=== PATIENT | male | born 1935 | race Caucasian/White ===

== ENCOUNTER 2019-08-12 07:05 | Emergency (ER) | payer BC, MEDICARE ==
[2019-08-12] MEDS ORDERED: predniSONE 20 MG Tab PO STA (08:38)
--- NOTE | 2019-08-12 08:41 | EDM.PDOC ---
ED HPI GENERAL MEDICAL PROBLEM - General Chief Complaint: Lower Extremity Injury/Pain Stated Complaint: LEG PAIN Time Seen by Provider: 08/12/19 07:10 Source of Information: Reports: Patient History Limitations: Reports: No Limitations - History of Present Illness INITIAL COMMENTS - FREE TEXT/NARRATIVE: usually walks 10 blocks a day did same yesterday , slept and woke up this am not able to bear weight on the right knee poorly localized pain in the knee no swelling noted shoots down the leg as he tries to ambulate Onset: Today Onset Date: 08/12/19 Duration: Getting Worse Location: Reports: Lower Extremity, Right Quality: Reports: Ache, Dull Severity: Moderate Improves with: Reports: None, Immobilization Worsens with: Reports: Movement Context: Reports: Activity Associated Symptoms: Reports: No Other Symptoms righd knee Pain Score (Numeric/FACES): 10 - Related Data Allergies Allergy/AdvReac Type Severity Reaction Status Date / Time No Known Allergies Allergy Verified 08/12/19 07:21 Home Meds: Home Meds Aspirin [Halfprin] 81 mg PO DAILY 08/12/19 [History] Cyanocobalamin (Vitamin B-12) [Vitamin B-12] 1,000 mcg PO DAILY 08/12/19 [ History] Finasteride [Proscar] 5 mg PO DAILY 08/12/19 [History] Metoprolol Tartrate 12.5 mg PO BID 08/12/19 [History] Naproxen 500 mg PO BID #20 tablet 08/12/19 [Rx] Pravastatin Sodium [Pravachol] 40 mg PO DAILY 08/12/19 [History] Terazosin HCl [Terazosin] 5 mg PO DAILY 08/12/19 [History] allopurinoL [Zyloprim] 300 mg PO DAILY 08/12/19 [History] hydroCHLOROthiazide [Hydrochlorothiazide] 25 mg PO DAILY 08/12/19 [History] Past Medical History Cardiovascular History: Reports: High Cholesterol, Hypertension Genitourinary History: Reports: Other (See Below) Other Genitourinary History: urinary retention Musculoskeletal History: Reports: Gout Social & Family History - Tobacco Use Smoking Status *Q: Never Smoker Review of Systems - Review of Systems Review Of Systems: See Below Constitutional: Reports: No Symptoms Eyes: Reports: No Symptoms Ears: Reports: No Symptoms Nose: Reports: No Symptoms Mouth/Throat: Reports: No Symptoms Respiratory: Reports: No Symptoms Cardiovascular: Reports: No Symptoms GI/Abdominal: Reports: No Symptoms Genitourinary: Reports: No Symptoms Musculoskeletal: Reports: Joint Pain, Muscle Stiffness. Denies: Joint Swelling Skin: Reports: No Symptoms Neurological: Reports: No Symptoms ED EXAM, GENERAL - Physical Exam Exam: See Below Exam Limited By: No Limitations General Appearance: Alert, WD/WN Eye Exam: Bilateral Eye: EOMI Ears: Normal External Exam Nose: Normal Inspection Throat/Mouth: Normal Oropharynx Respiratory/Chest: No Respiratory Distress Back Exam: Normal Inspection Extremities: Leg Pain, Limited Range of Motion (right knee). No: Joint Swelling , Increased Warmth Neurological: Alert, Oriented, CN II-XII Intact Lymphatic: No Adenopathy Course - Vital Signs Last Recorded V/S: Last Vital Signs Temp 36.5 C 08/12/19 07:05 Pulse 80 08/12/19 07:05 Resp 18 08/12/19 07:05 BP 123/93 H 08/12/19 07:05 Pulse Ox 97 08/12/19 07:05 - Orders/Labs/Meds Orders: Active Orders 24 hr Category Date Time Status Knee Min 4V Rt [CR] Stat Exams 08/12/19 07:28 Ordered Departure - Departure Time of Disposition: 09:00 Disposition: Home, Self-Care 01 Condition: Fair Clinical Impression: Pain of right knee after injury, Sprain of knee - Discharge Information *PRESCRIPTION DRUG MONITORING PROGRAM REVIEWED*: Not Applicable *COPY OF PRESCRIPTION DRUG MONITORING REPORT IN PATIENT KIANNA: Not Applicable Instructions: Knee Sprain, Adult, [id number], Acute Knee Pain, Adult, Easy-to -Read, How to Use a Knee Brace Referrals: PCP,None [Primary Care Provider] - Additional Instructions: 1) Warm compress to the knee 3 times daily for about 20 mins 2) Flexion / extension exercises to the knee when brace is off 3) Ok to use brace through the night 4) continue with all other medications 5) Make appointment to see you PCP if pain persists after one week, you may need to get MRI done Sepsis Event Note - Evaluation Sepsis Screening Result: No Definite Risk - Focused Exam Vital Signs: Vital Signs Temp Pulse Resp BP Pulse Ox 08/12/19 07:05 36.5 C 80 18 123/93 H 97 Date Exam was Performed: 05/24/20 Time Exam was Performed: 08:35 - My Orders Last 24 Hours: My Active Orders 08/12/19 07:28 Knee Min 4V Rt [CR] Stat - Assessment/Plan Last 24 Hours: My Active Orders 08/12/19 07:28 Knee Min 4V Rt [CR] Stat
[2019-08-12] MEDS ORDERED: Ketorolac 30 MG/ML SDV IM ONE (08:44)
--- NOTE | 2019-08-14 10:06 | CR ---
INDICATION: Pain. RIGHT KNEE: Three views of the right knee were obtained and revealed mild hypertrophic degenerative changes at the intercondylar spines. Femoral tibial joint spaces appear to be well maintained. There appears to be narrowing of the patellofemoral joint space, especially laterally, with moderate hypertrophic changes there. Bone density appeared to be grossly normal. A definite acute fracture or dislocation was not seen. There is a somewhat heterogeneous appearance of the soft tissue posteriorly of questionable significance. It could be related to soft tissue injury or even infection and should be correlated clinically. Report was called to Dr. Aviles at 09:53 hours. RICKY
== END 2019-08-12 08:58 | disposition home or self-care (01) ==
LOC: FB.ED 07:05
DX: S83.91XA Sprain of unspecified site of right knee, initial encounter (principal); E78.00 Pure hypercholesterolemia, unspecified; I10 Essential (primary) hypertension; Z79.82 Long term (current) use of aspirin; Z79.899 Other long term (current) drug therapy; X58.XXXA Exposure to other specified factors, initial encounter
CPT/HCPCS: 73562; 96372; 99283; J1885; J7512

== ENCOUNTER 2019-09-01 19:07 | Emergency (ER) | payer MEDICARE ==
--- NOTE | 2019-09-01 19:27 | EDM.PDOC ---
ED HPI GENERAL MEDICAL PROBLEM - General Chief Complaint: Lower Extremity Injury/Pain Stated Complaint: knee pain Time Seen by Provider: 09/01/19 19:25 Source of Information: Reports: Patient History Limitations: Reports: No Limitations - History of Present Illness INITIAL COMMENTS - FREE TEXT/NARRATIVE: 83-year-old male who reports intermittent right knee pain since 08/12/2019. He was seen in the emergency department at that time by Dr. Presley and had x-ray performed that was normal. He had developed the knee pain rather acutely he had no trauma that precipitated the pain. The pain was more of a general pain around the entire knee. He reports that a few days following this the pain seemed to go away and he had no more severe pain in the until yesterday. He reports that he saw Kristina Benedict a few days after he had been seen in the emergency department and he was pain-free at that time and the decision was made to wait for any further imaging. She apparently did give him a steroid injection in his knee as he really had no more problems yesterday. He did have his toenails trimmed yesterday at the walk-in clinic and he saw Alyce Seay and they discussed doing an MRI of his right knee at that time but decided to wait. He states that when he got home from that appointment he begin to have pain in his right knee like the pain that he had before and it seems to have gotten worse with time. He reports that when he is rest or dissed lying there the pain is basically a 0/10 but when he gets up and tries to move around the pain goes up to a 9 to 10/10. He finds it difficult to walk. And he feels that when he bears weight that is when he starts to have pain generally around his right knee. There is been no swelling. There has been no redness. He has had no fever. He has no other joint pains. He has had no trauma in the knee. There are no other associated signs or symptoms. There are no other modifying factors. Onset: Other (Off-and-on for the past 3-4 weeks but worse yesterday afternoon) Duration: Getting Worse Location: Reports: Lower Extremity, Right (Right knee) Quality: Reports: Ache, Sharp, Throbbing Severity: Moderate (to severe) Improves with: Reports: Rest Worsens with: Reports: Other (Ambulation.Bearing weight on his right leg) Context: Reports: Other (As above) Associated Symptoms: Reports: No Other Symptoms Treatments A[employer] F[employer]ER: Reports: Other (see below) (Nothing) - Related Data Allergies Allergy/AdvReac Type Severity Reaction Status Date / Time No Known Allergies Allergy Verified 08/12/19 07:21 Home Meds: Home Meds Aspirin [Halfprin] 81 mg PO DAILY 08/12/19 [History] Cyanocobalamin (Vitamin B-12) [Vitamin B-12] 1,000 mcg PO DAILY 08/12/19 [ History] Finasteride [Proscar] 5 mg PO DAILY 08/12/19 [History] Metoprolol Tartrate 12.5 mg PO BID 08/12/19 [History] Naproxen 500 mg PO BID #20 tablet 08/12/19 [Rx] Pravastatin Sodium [Pravachol] 40 mg PO DAILY 08/12/19 [History] Terazosin HCl [Terazosin] 5 mg PO DAILY 08/12/19 [History] allopurinoL [Zyloprim] 300 mg PO DAILY 08/12/19 [History] hydroCHLOROthiazide [Hydrochlorothiazide] 25 mg PO DAILY 08/12/19 [History] Walker [Ultra-Light Rollator] 1 each MC ASDIRECTED #1 each 09/01/19 [Rx] traMADol [Ultram] 50 mg PO Q6H PRN #20 tab 09/01/19 [Rx] Past Medical History Cardiovascular History: Reports: High Cholesterol, Hypertension, Other (See Below) (Peripheral vascular disease) Genitourinary History: Reports: BPH, Other (See Below) Other Genitourinary History: urinary retention Musculoskeletal History: Reports: Gout - Past Surgical History Cardiovascular Surgical History: Reports: Percutaneous Transluminal Angioplasty (With stents in both groin areas) GI Surgical History: Reports: Appendectomy, Hernia, Abdominal (2 with the last one being with mesh.) Social & Family History - Tobacco Use Smoking Status *Q: Unknown Ever Smoked (Nonsmoker) - Alcohol Use Alcohol Use History: Yes Alcohol Use Frequency: Socially - Living Situation & Occupation Occupation: Retired Social History Comment: Moved from [facility] approximately 2 months ago. Review of Systems - Review of Systems Review Of Systems: See Below Constitutional: Reports: No Symptoms Eyes: Reports: No Symptoms Ears: Reports: No Symptoms Nose: Reports: No Symptoms Mouth/Throat: Reports: No Symptoms Respiratory: Reports: No Symptoms Cardiovascular: Reports: No Symptoms GI/Abdominal: Reports: No Symptoms Genitourinary: Reports: No Symptoms Musculoskeletal: Reports: Leg Pain (Right knee pain), Joint Pain. Denies: Joint Swelling Skin: Reports: No Symptoms Neurological: Reports: No Symptoms ED EXAM, GENERAL - Physical Exam Exam: See Below Exam Limited By: No Limitations General Appearance: Alert, WD/WN, Mild Distress, Other (Nontoxic appearing) Eye Exam: Bilateral Eye: EOMI, Normal Inspection Ears: Normal External Exam, Hearing Grossly Normal Ear Exam: Bilateral Ear: Auricle Normal Nose: Normal Inspection, Normal Mucosa, No Blood Throat/Mouth: Normal Inspection, Normal Oropharynx, Normal Voice, No Airway Compromise Head: Atraumatic, Normocephalic Neck: Normal Inspection, Supple, Non-Tender, Full Range of Motion Respiratory/Chest: No Respiratory Distress, Lungs Clear, Normal Breath Sounds, No Accessory Muscle Use, Chest Non-Tender Cardiovascular: Normal Peripheral Pulses, Regular Rate, Rhythm, No JVD, No Murmur Peripheral Pulses: 2+: Radial (L), Radial (R) GI/Abdominal: Normal Bowel Sounds, Soft, Non-Tender, No Mass Back Exam: Normal Inspection Extremities: Normal Inspection, Normal Range of Motion, Non-Tender, No Pedal Edema, Normal Capillary Refill, Other (No pain with palpation around the right knee and there is no effusion. No ligamentous laxity.). No: Joint Swelling, Increased Warmth Neurological: Alert, Oriented, CN II-XII Intact, Normal Cognition, No Motor/ Sensory Deficits Psychiatric: Normal Affect Skin Exam: Warm, Dry, Intact, Normal Color, No Rash Course - Vital Signs Last Recorded V/S: Last Vital Signs Temp 36.9 C 09/01/19 21:53 Pulse 80 09/01/19 21:53 Resp 16 09/01/19 21:53 BP 130/84 09/01/19 21:53 Pulse Ox 99 09/01/19 21:53 - Orders/Labs/Meds Orders: Active Orders 24 hr Category Date Time Status Lower Extremity wo Cont Rt [CT] Stat Exams 09/01/19 19:53 Taken Labs: Laboratory Tests 09/01/19 09/01/19 Range/Units 20:08 20:08 WBC 7.3 (4.5-12.0) X10-3/uL RBC 4.87 (4.30-5.75) x10(6)uL Hgb 14.6 (13.5-17.8) g/dL Hct 43.9 (30.0-51.3) % MCV 90.1 (80-96) fL MCH 30.0 (27.7-33.6) pg MCHC 33.2 (32.2-35.4) g/dL RDW 15.3 (11.5-15.5) % Plt Count 103 L (125-369) X10(3)uL MPV 10.5 H (7.4-10.4) fL Neut % (Auto) 66.0 (46-82) % Lymph % (Auto) 11.3 L (13-37) % [place] % (Auto) 15.4 H (4-12) % Eos % (Auto) 7 H (1.0-5.0) % Baso % (Auto) 1 (0-2) % Neut # (Auto) 4.8 (1.6-8.3) # Lymph # (Auto) 0.8 (0.6-5.0) # [place] # (Auto) 1.1 (0.0-1.3) # Eos # (Auto) 0.5 (0.0-0.8) # Baso # (Auto) 0.1 (0.0-0.2) # C-Reactive Protein 2.3 H (0.5-0.9) mg/dL Meds: Medications Discontinued Medications Generic Name Dose Route Start Last Admin Trade Name Freq PRN Reason Stop Dose Admin Tramadol HCl 50 mg 09/01/19 20:40 09/01/19 20:45 Ultram PO 09/01/19 20:41 50 mg ONETIME ONE Administration - Radiology Interpretation Free Text/Narrative:: CT scan of right knee showed no fracture, subluxation, effusion or soft tissue swelling. There were vascular calcifications noted. This is all per the radiologist. - Re-Assessments/Exams Free Text/Narrative Re-Assessment/Exam: 09/01/19 21:15: The patient's blood tests were reassuring. His CRP was mildly elevated but his white blood cell count was normal. CT scan of his right knee showed no fracture and no effusion. The pain in his right knee appears to be due to degenerative joint disease. The patient was given tramadol 50 mg by mouth and I will give him a prescription in for the same to be used as needed for the pain. I will also give the patient a prescription for a 4 wheeled walker. He will need to follow-up with Alyce Seay or with the [facility] this next week. Departure - Departure Time of Disposition: 21:25 Disposition: Home, Self-Care 01 Condition: Good (Stable) Clinical Impression: Right knee pain Qualifiers: Chronicity: acute Qualified Code(s): M25.561 - Pain in right knee Right knee DJD Qualifiers: Osteoarthritis type: unspecified Qualified Code(s): M17.11 - Unilateral primary osteoarthritis, right knee - Discharge Information Prescriptions: traMADol [Ultram] 50 mg PO Q6H PRN #20 tab PRN Reason: Moderate to severe pain Walker [Ultra-Light Rollator] 1 each MC ASDIRECTED #1 each Instructions: Acute Knee Pain, Adult, How To Use a Four-Wheeled Walker, Joint Pain, [id number] Referrals: Alyce Seay, CONTINUOUS IMPROVEMENT SPECIALIST [Physician] - Forms: ED Department Discharge Additional Instructions: Your blood tests were reassuring. There was no evidence of infection. The CT scan of your right knee showed no evidence of fracture or inflammation. The pain in your right knee appears to be from degenerative joint disease. You may use ibuprofen as needed for pain. Medication as prescribed for more severe pain (tramadol). You may also take Tylenol 1000 mg by mouth every 6 hours as needed for pain. Follow-up with either Alyce Seay or the [facility] week. Back to the emergency department for redness, increased swelling, increased warmth, fever, shortness of breath, chest pain or any other concerning sign or symptom. Sepsis Event Note (ED) - Focused Exam Vital Signs: Vital Signs Temp Temp Pulse Resp BP Pulse Ox 09/01/19 21:53 36.9 C 80 16 130/84 99 09/01/19 19:07 35.9 C L 69 18 161/87 H 98 - My Orders Last 24 Hours: My Active Orders 09/01/19 19:53 Lower Extremity wo Cont Rt [CT] Stat - Assessment/Plan Last 24 Hours: My Active Orders 09/01/19 19:53 Lower Extremity wo Cont Rt [CT] Stat
[2019-09-01] MEDS: traMADol 50 MG Tab PO ONE (20:45)
== END 2019-09-01 21:53 | disposition home or self-care (01) ==
LOC: FB.ED 19:07
DX: M17.11 Unilateral primary osteoarthritis, right knee (principal); I10 Essential (primary) hypertension; E78.00 Pure hypercholesterolemia, unspecified; Z79.82 Long term (current) use of aspirin; Z79.899 Other long term (current) drug therapy
CPT/HCPCS: 36415; 73700-RT; 85025; 86140; 99283; 99284-25; A9270-GY

== ENCOUNTER 2020-03-04 18:19 | Emergency (ER) | payer MEDICARE ==
[2020-03-04] MEDS ORDERED: Sodium Chloride 0.9% 10 ML Syringe FLUSH PRN (18:30)
[2020-03-04] MEDS ORDERED: Potassium Chloride 20 MEQ Tab.ER PO ONE (18:31)
[2020-03-04] MEDS ORDERED: Sodium Chloride 0.9% 1,000 ML IV SCH (18:45)
--- NOTE | 2020-03-04 20:05 | EDM.PDOC ---
ED HPI GENERAL MEDICAL PROBLEM - General Chief Complaint: Gastrointestinal Problem Stated Complaint: weakness Time Seen by Provider: 03/04/20 18:25 Source of Information: Reports: Patient History Limitations: Reports: No Limitations - History of Present Illness INITIAL COMMENTS - FREE TEXT/NARRATIVE: Patient presented to the ED with his son because of weakness for the past 3 da ys. There is no fever,chills, cough or cold. There is no N/V/D. He was seen in the clinic today and chm panel did show a potasium of 2.8 and mildly elevated BUN and Creatinine. - Related Data Allergies Allergy/AdvReac Type Severity Reaction Status Date / Time No Known Allergies Allergy Verified 03/04/20 19:34 Home Meds: Home Meds Allopurinol [Zyloprim] 100 mg PO DAILY 03/04/20 [History] Aspirin [Ecotrin EC] 81 mg PO DAILY 03/04/20 [History] Cyanocobalamin (Vitamin B12) [Vitamin B12] 1,000 mcg PO DAILY 03/04/20 [History] Finasteride 5 mg PO DAILY 03/04/20 [History] Metoprolol Succinate 50 mg PO DAILY 03/04/20 [History] Potassium Chloride [Klor-Con M20] 40 meq PO TID #12 tab.er 03/04/20 [Rx] Pravastatin Sodium [Pravachol] 40 mg PO DAILY 03/04/20 [History] Terazosin HCl [Terazosin] 5 mg PO DAILY 03/04/20 [History] Vit A/Vit C/Vit E/Zinc/Copper [Preservision] 1 tab PO DAILY 03/04/20 [History] hydroCHLOROthiazide [Hydrochlorothiazide] 25 mg PO DAILY 03/04/20 [History] Past Medical History Cardiovascular History: Reports: High Cholesterol, Hypertension, Other (See Belo w) Genitourinary History: Reports: BPH, Other (See Below) Other Genitourinary History: urinary retention Musculoskeletal History: Reports: Gout - Past Surgical History Cardiovascular Surgical History: Reports: Percutaneous Transluminal Angioplasty GI Surgical History: Reports: Appendectomy, Hernia, Abdominal Social & Family History - Family History Family Medical History: No Pertinent Family History - Tobacco Use Tobacco Use Status *Q: Never Tobacco User Second Hand Smoke Exposure: No - Caffeine Use Caffeine Use: Reports: Soda - Recreational Drug Use Recreational Drug Use: No - Living Situation & Occupation Occupation: Retired ED ROS GENERAL - Review of Systems Review Of Systems: See Below Constitutional: Reports: No Symptoms HEENT: Reports: No Symptoms Respiratory: Reports: No Symptoms Cardiovascular: Reports: No Symptoms Endocrine: Reports: No Symptoms GI/Abdominal: Reports: No Symptoms : Reports: No Symptoms Musculoskeletal: Reports: No Symptoms Skin: Reports: No Symptoms Neurological: Reports: No Symptoms Psychiatric: Reports: No Symptoms Hematologic/Lymphatic: Reports: No Symptoms ED EXAM, GENERAL - Physical Exam Exam: See Below Exam Limited By: No Limitations General Appearance: Alert, No Apparent Distress Eye Exam: Bilateral Eye: PERRL Ears: Normal External Exam, Normal Canal Nose: Normal Inspection, Normal Mucosa Throat/Mouth: Normal Inspection, Normal Lips Head: Atraumatic, Normocephalic Neck: Normal Inspection, Supple, Non-Tender, Full Range of Motion Respiratory/Chest: No Respiratory Distress, Lungs Clear, Normal Breath Sounds Cardiovascular: Normal Peripheral Pulses, Regular Rate, Rhythm, No Edema, No Gallop GI/Abdominal: Normal Bowel Sounds, Soft, Non-Tender, No Organomegaly Back Exam: Normal Inspection, Full Range of Motion Course - Vital Signs Text/Narrative:: Labs/EKG/CXR was discussed with patient and his son NS 1 L bolus Klor Con 40 meq po x1 Last Recorded V/S: Last Vital Signs Temp 37.1 C 03/04/20 18:20 Pulse 95 03/04/20 18:20 Resp 21 H 03/04/20 18:20 BP 145/83 H 03/04/20 18:20 Pulse Ox 95 03/04/20 18:20 - Orders/Labs/Meds Orders: Active Orders 24 hr Category Date Time Status Saline Lock Insert [OM.PC] Routine Oth 03/04/20 18:30 Ordered EKG 12 Lead [EK] Routine Ther 03/04/20 18:30 Ordered Labs: Laboratory Tests 03/04/20 Range/Units 18:40 Troponin I 59.3 (4.0-60.3) pg/mL Meds: Medications Discontinued Medications Generic Name Dose Route Start Last Admin Trade Name Freq PRN Reason Stop Dose Admin Sodium Chloride 1,000 mls @ 500 mls/hr 03/04/20 18:45 03/04/20 18:36 Normal Saline IV 500 mls/hr ASDIRECTED SERA Administration Potassium Chloride 40 meq 03/04/20 18:31 12/15/20 18:40 Klor-Con M20 PO 03/04/20 18:32 40 meq ONETIME ONE Administration Sodium Chloride 10 ml 03/04/20 18:30 03/04/20 18:27 Saline Flush FLUSH 10 ml ASDIRECTED PRN Administration Keep Vein Open Departure - Departure Time of Disposition: 18:00 Disposition: Home, Self-Care 01 Condition: Good Clinical Impression: Dehydration, Hypokalemia, Weakness - Discharge Information Prescriptions: Potassium Chloride [Klor-Con M20] 40 meq PO TID #12 tab.er Instructions: Hypokalemia, Dehydration, Adult, [id number] Referrals: PCP,None [Primary Care Provider] - Forms: ED Department Discharge Additional Instructions: Please read discharge instructions instructions on dehydration, hypokalemia(low potassium) Do not take your HCTZ/hydrochlorothiazide for 3 days Klor con 20 meq, take 2 tablets 3 times daily for 3 days Follow up with your primary care provider as needed. Sepsis Event Note (ED) - Focused Exam Vital Signs: Vital Signs Temp Pulse Resp BP Pulse Ox 03/04/20 18:20 37.1 C 95 21 H 145/83 H 95 - My Orders Last 24 Hours: My Active Orders 03/04/20 18:30 Saline Lock Insert [OM.PC] Routine EKG 12 Lead [EK] Routine - Assessment/Plan Last 24 Hours: My Active Orders 03/04/20 18:30 Saline Lock Insert [OM.PC] Routine EKG 12 Lead [EK] Routine
--- NOTE | 2020-03-04 20:27 | CR ---
CHEST ONE VIEW Portable AP upright view of the chest was obtained 03/04/2020 and revealed suggestion of increased markings bilaterally which may represent patchy infiltration, mostly peripherally. Process such as Covid 19 pneumonia could be present but should be correlated clinically as findings may simply be on the basis of fibrosis. There is pleural thickening bilaterally, laterally. The heart did not appear grossly enlarged but was prominent. The aorta is tortuous with calcification in the arch. Overlying EKG leads are noted. IMPRESSION: No definite acute process, but difficult to exclude areas of patchy bronchopneumonia with somewhat heavy markings peripherally. When clinically possible, full inspiration PA and lateral views of the chest may be helpful. MTDD
== END 2020-03-04 21:10 | disposition home or self-care (01) ==
LOC: FB.ED 18:19
DX: E87.6 Hypokalemia (principal); E86.0 Dehydration; I10 Essential (primary) hypertension; E78.00 Pure hypercholesterolemia, unspecified; M10.9 Gout, unspecified; N40.0 Benign prostatic hyperplasia without lower urinary tract symptoms; Z79.82 Long term (current) use of aspirin; Z79.899 Other long term (current) drug therapy
CPT/HCPCS: 36415; 71045; 84484; 93005; 99285-25; A9270-GY; J7030

== ENCOUNTER 2020-03-09 19:02 | Emergency (ER) | payer MEDICARE ==
[2020-03-09] MEDS ORDERED: Acetaminophen 650 MG Supp RECTAL ONE (19:21)
[2020-03-09] MEDS ORDERED: Sodium Chloride 0.9% 1,000 ML IV SCH ×2 (19:30→21:00)
--- NOTE | 2020-03-09 20:02 | EDM.PDOC ---
ED HPI GENERAL MEDICAL PROBLEM - General Stated Complaint: CONFUSED,FEVER Time Seen by Provider: 03/09/20 19:10 Source of Information: Reports: Family History Limitations: Reports: No Limitations - History of Present Illness INITIAL COMMENTS - FREE TEXT/NARRATIVE: c/o weak and fever pt in ED 5d ago with c/o weak, CxR shows possible pneumonia, COVID done and is still pending, trop neg, d/c'ed home after IVF pt quite weak today, not able to get out of bed, son helped him to a chair but could not get him in a car, EMS transported here, temp 105 at home, 102 here hydration seems fair, no distress here - Related Data Allergies Allergy/AdvReac Type Severity Reaction Status Date / Time No Known Allergies Allergy Verified 03/04/20 19:34 Home Meds: Home Meds Allopurinol [Zyloprim] 100 mg PO DAILY 03/04/20 [History] Aspirin [Ecotrin EC] 81 mg PO DAILY 03/04/20 [History] Cyanocobalamin (Vitamin B12) [Vitamin B12] 1,000 mcg PO DAILY 03/04/20 [History] Finasteride 5 mg PO DAILY 03/04/20 [History] Metoprolol Succinate 50 mg PO DAILY 03/04/20 [History] Potassium Chloride [Klor-Con M20] 40 meq PO TID #12 tab.er 03/04/20 [Rx] Pravastatin Sodium [Pravachol] 40 mg PO DAILY 03/04/20 [History] Terazosin HCl [Terazosin] 5 mg PO DAILY 03/04/20 [History] Vit A/Vit C/Vit E/Zinc/Copper [Preservision] 1 tab PO DAILY 03/04/20 [History] hydroCHLOROthiazide [Hydrochlorothiazide] 25 mg PO DAILY 03/04/20 [History] Past Medical History Cardiovascular History: Reports: High Cholesterol, Hypertension, Other (See Below) Genitourinary History: Reports: BPH, Other (See Below) Other Genitourinary History: urinary retention Musculoskeletal History: Reports: Gout - Past Surgical History Cardiovascular Surgical History: Reports: Percutaneous Transluminal Angioplasty GI Surgical History: Reports: Appendectomy, Hernia, Abdominal Social & Family History - Family History Family Medical History: No Pertinent Family History - Caffeine Use Caffeine Use: Reports: Soda - Living Situation & Occupation Occupation: Retired ED ROS GENERAL - Review of Systems Review Of Systems: See Below Constitutional: Reports: Fever, Weakness, Fatigue, Decreased Appetite HEENT: Reports: No Symptoms Respiratory: Reports: Shortness of Breath Cardiovascular: Denies: Chest Pain Endocrine: Reports: No Symptoms GI/Abdominal: Reports: No Symptoms : Reports: No Symptoms Musculoskeletal: Reports: No Symptoms Skin: Reports: No Symptoms Neurological: Reports: No Symptoms Psychiatric: Reports: No Symptoms Hematologic/Lymphatic: Reports: No Symptoms Immunologic: Reports: No Symptoms ED EXAM, GENERAL - Physical Exam Exam: See Below General Appearance: Alert, WD/WN, Other (resting quietly on his back, not answering questions, mildly ill, did talk to EMS and son, tired) Nose: Normal Inspection Head: Atraumatic, Normocephalic Neck: Normal Inspection, Supple, Non-Tender, Full Range of Motion. No: Lymphadenopathy (R), Lymphadenopathy (L) Respiratory/Chest: Other (fair AE, no inc'd exp phase, no definite rales/wheezes, symmetric, no retractions, no purse lips, no accessory muscles) Cardiovascular: Regular Rate, Rhythm, No Edema, No JVD, No Murmur GI/Abdominal: Normal Bowel Sounds, Soft, Non-Tender, No Distention Back Exam: Normal Inspection, Full Range of Motion. No: CVA Tenderness (R), CVA Tenderness (L) Extremities: Normal Inspection, Non-Tender, No Pedal Edema, Other (slight dec'd turgor UEs only, no tenting) Skin Exam: Warm, Dry, Intact, Normal Color, No Rash Lymphatic: No Adenopathy Course - Orders/Labs/Meds Orders: Active Orders 24 hr Category Date Time Status EKG Documentation Completion [RC] ASDIRECTED Care 03/09/20 19:20 Active Sawant Catheter Insertion [Insert Urinary Catheter] [OM. Care 03/09/20 20:30 Ordered PC] Q24H Oxygen Therapy [RC] ASDIRECTED Care 03/09/20 19:20 Active Urinary Catheter Assessment [RC] QSHIFT Care 03/09/20 20:29 Active Chest 1V Frontal [CR] Stat Exams 03/09/20 19:19 Taken CULTURE BLOOD [BC] Urgent Lab 03/09/20 19:40 Received CULTURE BLOOD [BC] Urgent Lab 03/09/20 19:45 Received UA W/MICROSCOPIC [URIN] Stat Lab 03/09/20 19:18 Ordered Magnesium Sulfate [Magnesium Sulfate 50%] 2 gm Med 03/09/20 20:26 Active Dextrose 5% in Water 100 ml IV ONETIME Potassium Chloride [KCL 20 MEQ in Water 100 ML] 20 meq Med 03/09/20 20:27 Active Premix Bag 1 bag IV ONETIME Sodium Chloride 0.9% [Normal Saline] 1,000 ml Med 03/09/20 19:30 Active IV ASDIRECTED Sodium Chloride 0.9% [Normal Saline] 1,000 ml Med 03/09/20 21:00 Ordered IV ASDIRECTED Vancomycin 1.25 gm Med 03/09/20 20:54 Ordered Sodium Chloride 0.9% [Normal Saline] 250 ml IV ONETIME cefTRIAXone [Rocephin] Med 03/09/20 21:00 Active 1 gm IVPUSH Q24H Blood Culture x2 Reflex Set [OM.PC] Urgent Oth 03/09/20 19:18 Ordered EKG 12 Lead [EK] Routine Ther 03/09/20 19:20 Ordered Medication Orders Ceftriaxone Sodium (Rocephin) 1 gm IVPUSH Q24H [facility] Sodium Chloride (Normal Saline) 1,000 mls @ 999 mls/hr IV ASDIRECTED [facility] Last Admin: 03/09/20 19:50 Dose: 999 mls/hr Documented by: DENISE Magnesium Sulfate 2 gm/ (Dextrose/Water) 104 mls @ 100 mls/hr IV ONETIME ONE Stop: 03/09/20 21:28 Potassium Chloride 20 meq/ (Premix) 100 mls @ 50 mls/hr IV ONETIME ONE Stop: 03/09/20 22:26 Vancomycin HCl 1.25 gm/ Sodium (Chloride) 250 mls @ 167 mls/hr IV ONETIME ONE Stop: 03/09/20 22:23 Sodium Chloride (Normal Saline) 1,000 mls @ 999 mls/hr IV ASDIRECTED [facility] Labs: Laboratory Tests 03/09/20 03/09/20 03/09/20 Range/Units 19:40 19:40 19:40 WBC 8.9 (3.2-10.1) x10-3/uL RBC 4.88 (3.90-5.90) x10(6)uL Hgb 14.2 (12.9-17.7) g/dL Hct 42.3 (38.3-50.1) % MCV 86.7 (80.8-98.7) fL MCH 29.1 (27.0-33.3) pg MCHC 33.5 (28.7-35.3) g/dL RDW 15.6 H (12.4-15.0) % Plt Count 127 (117-477) x10(3)uL MPV 10.6 (6.7-11.0) fL Neut % (Auto) 88.4 H (40.3-71.8) % Lymph % (Auto) 2.1 L (15.8-45.3) % [place] % (Auto) 9.4 (5.5-15.2) % Eos % (Auto) 0.0 L (0.1-6.8) % Baso % (Auto) 0.1 L (0.3-3.8) % Neut # (Auto) 7.8 H (1.7-6.9) x10-3/uL Lymph # (Auto) 0.2 L (0.5-4.5) x10-3/uL [place] # (Auto) 0.8 (0.0-1.2) x10-3/uL Eos # (Auto) 0.0 (0.0-0.6) x10-3/uL Baso # (Auto) 0.0 (0.0-0.3) x10-3/uL D-Dimer, Quantitative > 4.40 H (0.0-0.59) mg/LFEU Sodium 140 (135-145) mmol/L Potassium 2.9 L (3.5-5.3) mmol/L Chloride 99 L (100-110) mmol/L Carbon Dioxide 27 (21-32) mmol/L BUN 27 H (7-18) mg/dL Creatinine 1.5 H (0.70-1.30) mg/dL Est Cr Clr Drug Dosing TNP Estimated GFR (MDRD) 44 L (>60) BUN/Creatinine Ratio 18.0 (9-20) Glucose 111 (80-116) mg/dL Lactic Acid (0.4-2.0) mmol/L Calcium 8.7 (8.6-10.2) mg/dL Magnesium (1.8-2.5) mg/dL Total Bilirubin 1.3 (0.1-1.3) mg/dL AST 54 H (5-25) IU/L ALT 32 (12-36) U/L Alkaline Phosphatase 63 (56-112) IU/L Troponin I (4.0-60.3) pg/mL C-Reactive Protein (0.5-0.9) mg/dL Total Protein 6.7 (6.0-8.0) g/dL Albumin 2.7 L (3.2-4.6) g/dL Globulin 4.0 g/dL Albumin/Globulin Ratio 0.7 SARS-CoV-2 RNA (PERRY) (NEGATIVE) 03/09/20 03/09/20 03/09/20 Range/Units 19:40 19:40 19:40 WBC (3.2-10.1) x10-3/uL RBC (3.90-5.90) x10(6)uL Hgb (12.9-17.7) g/dL Hct (38.3-50.1) % MCV (80.8-98.7) fL MCH (27.0-33.3) pg MCHC (28.7-35.3) g/dL RDW (12.4-15.0) % Plt Count (117-477) x10(3)uL MPV (6.7-11.0) fL Neut % (Auto) (40.3-71.8) % Lymph % (Auto) (15.8-45.3) % [place] % (Auto) (5.5-15.2) % Eos % (Auto) (0.1-6.8) % Baso % (Auto) (0.3-3.8) % Neut # (Auto) (1.7-6.9) x10-3/uL Lymph # (Auto) (0.5-4.5) x10-3/uL [place] # (Auto) (0.0-1.2) x10-3/uL Eos # (Auto) (0.0-0.6) x10-3/uL Baso # (Auto) (0.0-0.3) x10-3/uL D-Dimer, Quantitative (0.0-0.59) mg/LFEU Sodium (135-145) mmol/L Potassium (3.5-5.3) mmol/L Chloride (100-110) mmol/L Carbon Dioxide (21-32) mmol/L BUN (7-18) mg/dL Creatinine (0.70-1.30) mg/dL Est Cr Clr Drug Dosing Estimated GFR (MDRD) (>60) BUN/Creatinine Ratio (9-20) Glucose (80-116) mg/dL Lactic Acid 1.5 (0.4-2.0) mmol/L Calcium (8.6-10.2) mg/dL Magnesium (1.8-2.5) mg/dL Total Bilirubin (0.1-1.3) mg/dL AST (5-25) IU/L ALT (12-36) U/L Alkaline Phosphatase (56-112) IU/L Troponin I 78.5 H* (4.0-60.3) pg/mL C-Reactive Protein 26.7 H* (0.5-0.9) mg/dL Total Protein (6.0-8.0) g/dL Albumin (3.2-4.6) g/dL Globulin g/dL Albumin/Globulin Ratio SARS-CoV-2 RNA (PERRY) (NEGATIVE) 03/09/20 03/09/20 Range/Units 19:40 19:45 WBC (3.2-10.1) x10-3/uL RBC (3.90-5.90) x10(6)uL Hgb (12.9-17.7) g/dL Hct (38.3-50.1) % MCV (80.8-98.7) fL MCH (27.0-33.3) pg MCHC (28.7-35.3) g/dL RDW (12.4-15.0) % Plt Count (117-477) x10(3)uL MPV (6.7-11.0) fL Neut % (Auto) (40.3-71.8) % Lymph % (Auto) (15.8-45.3) % [place] % (Auto) (5.5-15.2) % Eos % (Auto) (0.1-6.8) % Baso % (Auto) (0.3-3.8) % Neut # (Auto) (1.7-6.9) x10-3/uL Lymph # (Auto) (0.5-4.5) x10-3/uL [place] # (Auto) (0.0-1.2) x10-3/uL Eos # (Auto) (0.0-0.6) x10-3/uL Baso # (Auto) (0.0-0.3) x10-3/uL D-Dimer, Quantitative (0.0-0.59) mg/LFEU Sodium (135-145) mmol/L Potassium (3.5-5.3) mmol/L Chloride (100-110) mmol/L Carbon Dioxide (21-32) mmol/L BUN (7-18) mg/dL Creatinine (0.70-1.30) mg/dL Est Cr Clr Drug Dosing Estimated GFR (MDRD) (>60) BUN/Creatinine Ratio (9-20) Glucose (80-116) mg/dL Lactic Acid (0.4-2.0) mmol/L Calcium (8.6-10.2) mg/dL Magnesium 1.6 L (1.8-2.5) mg/dL Total Bilirubin (0.1-1.3) mg/dL AST (5-25) IU/L ALT (12-36) U/L Alkaline Phosphatase (56-112) IU/L Troponin I (4.0-60.3) pg/mL C-Reactive Protein (0.5-0.9) mg/dL Total Protein (6.0-8.0) g/dL Albumin (3.2-4.6) g/dL Globulin g/dL Albumin/Globulin Ratio SARS-CoV-2 RNA (PERRY) Positive H (NEGATIVE) Meds: Medications Generic Name Dose Route Start Last Admin Trade Name Freq PRN Reason Stop Dose Admin Ceftriaxone Sodium 1 gm 03/09/20 21:00 Rocephin IVPUSH Q24H [facility] Sodium Chloride 1,000 mls @ 999 mls/hr 03/09/20 19:30 03/09/20 19:50 Normal Saline IV 999 mls/hr ASDIRECTED [facility] Administration Magnesium Sulfate 2 gm/ 104 mls @ 100 mls/hr 03/09/20 20:26 Dextrose/Water IV 03/09/20 21:28 ONETIME ONE Potassium Chloride 20 meq/ 100 mls @ 50 mls/hr 03/09/20 20:27 Premix IV 03/09/20 22:26 ONETIME ONE Vancomycin HCl 1.25 gm/ Sodium 250 mls @ 167 mls/hr 03/09/20 20:54 Chloride IV 03/09/20 22:23 ONETIME ONE Sodium Chloride 1,000 mls @ 999 mls/hr 03/09/20 21:00 Normal Saline IV ASDIRECTED SERA Discontinued Medications Generic Name Dose Route Start Last Admin Trade Name Lu PRN Reason Stop Dose Admin Acetaminophen 650 mg 03/09/20 19:21 03/09/20 19:55 Tylenol RECTAL 03/09/20 19:22 650 mg NOW ONE Administration Aspirin 324 mg 03/09/20 20:53 Aspirin PO 03/09/20 20:54 ONETIME ONE Magnesium Sulfate Confirm 03/09/20 20:57 Magnesium Sulfate In Water Premix Administered 03/09/20 20:58 Dose 2 gm in 50 mls @ as directed .ROUTE .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 with a PICC line and antbxs x 6w, unknown if MRSA Departure - Departure Time of Disposition: 21:00 Disposition: DC/Tfer to Other 70 Condition: Good Clinical Impression: Pneumonia due to COVID-19 virus, Right lower lobe pneumonia, Left lower lobe pneumonia, Right middle lobe pneumonia, H/O peripheral vascular disease, Dehydration, moderate, Coronary artery disease, Elevated troponin, Acute renal insufficiency, Elevated d-dimer, Elevated C-reactive protein (CRP), Fever, Confusion, Hypoalbuminemia, Hypomagnesemia, Hypokalemia, Left-shifted white blood cells - Discharge Information *PRESCRIPTION DRUG MONITORING PROGRAM REVIEWED*: Not Applicable *COPY OF PRESCRIPTION DRUG MONITORING REPORT IN PATIENT KIANNA: Not Applicable Referrals: PCP,None [Primary Care Provider] - - My Orders Last 24 Hours: My Active Orders 03/09/20 19:18 UA W/MICROSCOPIC [URIN] Stat Blood Culture x2 Reflex Set [OM.PC] Urgent 03/09/20 19:19 Chest 1V Frontal [CR] Stat 03/09/20 19:20 EKG Documentation Completion [RC] ASDIRECTED Oxygen Therapy [RC] ASDIRECTED EKG 12 Lead [EK] Routine 03/09/20 19:30 Sodium Chloride 0.9% [Normal Saline] 1,000 ml IV ASDIRECTED 03/09/20 19:40 CULTURE BLOOD [BC] Urgent 03/09/20 19:45 CULTURE BLOOD [BC] Urgent 03/09/20 20:26 Magnesium Sulfate [Magnesium Sulfate 50%] 2 gm Dextrose 5% in Water 100 ml IV ONETIME 03/09/20 20:27 Potassium Chloride [KCL 20 MEQ in Water 100 ML] 20 meq Premix Bag 1 bag IV ONETIME 03/09/20 20:29 Urinary Catheter Assessment [RC] QSHIFT 03/09/20 20:30 Sawant Catheter Insertion [Insert Urinary Catheter] [OM.PC] Q24H 03/09/20 20:54 Vancomycin 1.25 gm Sodium Chloride 0.9% [Normal Saline] 250 ml IV ONETIME 03/09/20 21:00 Sodium Chloride 0.9% [Normal Saline] 1,000 ml IV ASDIRECTED cefTRIAXone [Rocephin] 1 gm IVPUSH Q24H - Assessment/Plan Last 24 Hours: My Active Orders 03/09/20 19:18 UA W/MICROSCOPIC [URIN] Stat Blood Culture x2 Reflex Set [OM.PC] Urgent 03/09/20 19:19 Chest 1V Frontal [CR] Stat 03/09/20 19:20 EKG Documentation Completion [RC] ASDIRECTED Oxygen Therapy [RC] ASDIRECTED EKG 12 Lead [EK] Routine 03/09/20 19:30 Sodium Chloride 0.9% [Normal Saline] 1,000 ml IV ASDIRECTED 03/09/20 19:40 CULTURE BLOOD [BC] Urgent 03/09/20 19:45 CULTURE BLOOD [BC] Urgent 03/09/20 20:26 Magnesium Sulfate [Magnesium Sulfate 50%] 2 gm Dextrose 5% in Water 100 ml IV ONETIME 03/09/20 20:27 Potassium Chloride [KCL 20 MEQ in Water 100 ML] 20 meq Premix Bag 1 bag IV ONETIME 03/09/20 20:29 Urinary Catheter Assessment [RC] QSHIFT 03/09/20 20:30 Sawant Catheter Insertion [Insert Urinary Catheter] [OM.PC] Q24H 03/09/20 20:54 Vancomycin 1.25 gm Sodium Chloride 0.9% [Normal Saline] 250 ml IV ONETIME 03/09/20 21:00 Sodium Chloride 0.9% [Normal Saline] 1,000 ml IV ASDIRECTED cefTRIAXone [Rocephin] 1 gm IVPUSH Q24H
[2020-03-09] MEDS ORDERED: Potassium Chloride 20 MEQ in Premix Bag 1 BAG IV ONE (20:27)
[2020-03-09] MEDS ORDERED: Aspirin 81 MG Tab.Chew PO ONE (20:53)
[2020-03-09] MEDS ORDERED: Magnesium Sulfate/Water 2 GM/50 ML BAG ONE (20:57)
[2020-03-09] MEDS ORDERED: cefTRIAXone 1 GM Vial IVPUSH SCH (21:00)
[2020-03-09] MEDS ORDERED: Heparin Sodium 5,000 Units/ML Vial IVPUSH ONE (21:09)
[2020-03-09] MEDS ORDERED: Magnesium Sulfate/Water 2 GM/50 ML BAG IV ONE (21:15)
[2020-03-09] MEDS ORDERED: Heparin Sodium/0.45% NaCl 25,000 UNITS/500 ML BAG IV SCH (21:15)
--- NOTE | 2020-03-10 10:04 | CR ---
INDICATION: Short of breath. CHEST ONE VIEW: AP upright portable view of the chest 03/09/20 was compared with 03/04/20 and revealed increasing bilateral infiltration more prominent on the right than left in the mid lung field and lower lung field and at the left lung base. The possibility of a process such as COVID-19 pneumonia would be a consideration. The heart is again noted to be enlarged, the aorta tortuous with calcification in the arch. Overlying EKG leads are noted. IMPRESSION: 1. Increasing infiltration bilaterally. 2. ASHD with cardiomegaly. 3. Mass behind the heart could represent a fixed hiatal hernia, but should be correlated clinically. 4. 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 MTDD
== END 2020-03-09 22:30 | disposition other institution (70) ==
LOC: FB.ED 19:02
DX: U07.1 COVID-19 (principal); J12.89 Other viral pneumonia; E86.0 Dehydration; I25.10 Atherosclerotic heart disease of native coronary artery without angina pectoris; R79.89 Other specified abnormal findings of blood chemistry; N28.9 Disorder of kidney and ureter, unspecified; R79.1 Abnormal coagulation profile; R41.0 Disorientation, unspecified; N40.0 Benign prostatic hyperplasia without lower urinary tract symptoms; E88.09 Other disorders of plasma-protein metabolism, not elsewhere classified; E83.42 Hypomagnesemia; E87.6 Hypokalemia; E78.00 Pure hypercholesterolemia, unspecified; I10 Essential (primary) hypertension; M10.9 Gout, unspecified; Z79.82 Long term (current) use of aspirin; Z79.899 Other long term (current) drug therapy; Z20.828 Contact with and (suspected) exposure to other viral communicable diseases
CPT/HCPCS: 36415; 51702; 71045; 80053; 81001; 83605; 83735; 84484; 85025; 85379; 85610; 85730; 86140; 87040; 93005; 96365; 96367; 96368; 96375; 99285; A9270; J0696; J1644; J3370; J3475; J3480; J7030; J7050; U0002

== ENCOUNTER 2020-05-04 07:59 | Emergency (ER) | payer MEDICARE ==
[2020-05-04] MEDS ORDERED: Sodium Chloride 0.9% 10 ML Syringe FLUSH PRN (09:13)
--- NOTE | 2020-05-04 09:21 | EDM.PDOC ---
ED HPI GENERAL MEDICAL PROBLEM - General Chief Complaint: General Stated Complaint: SLEEP ISSUES Time Seen by Provider: 05/04/20 09:14 Source of Information: Reports: Patient History Limitations: Reports: No Limitations - History of Present Illness INITIAL COMMENTS - FREE TEXT/NARRATIVE: Presents to the ED with insomnia. Patient was diagnosed with COVID pneumonia on 03/09/20, transferred to [facility], [facility] a [facility]. Since discharge one week ago, he has only been able to sleep 2-3 hours per night. Patient is taking Melatonin 3 mg qhs without improvement. He has not followed up with his PCP regarding this. In the ED, patient became transiently lightheaded. BP was initially low at 92/55 on triage but he was asymptomatic at that time. Patient states BP is usually low in the mornings. Subsequent BP readings improved. Symptoms lasted @1-2 minutes. He denies chest pain or SOB. - Related Data Allergies Allergy/AdvReac Type Severity Reaction Status Date / Time No Known Allergies Allergy Verified 05/04/20 08:42 Home Meds: Home Meds Allopurinol [Zyloprim] 100 mg PO DAILY 03/04/20 [History] Aspirin [Ecotrin EC] 81 mg PO DAILY 03/04/20 [History] Finasteride 5 mg PO DAILY 03/04/20 [History] Terazosin HCl [Terazosin] 5 mg PO DAILY 03/04/20 [History] Acetaminophen [Tylenol] 325 mg PO Q4H PRN 05/04/20 [History] Cholecalciferol (Vitamin D3) [Vitamin D3] 1,000 unit PO DAILY 05/04/20 [History] Magnesium Oxide 400 mg PO DAILY #30 tab 05/04/20 [Rx] Melatonin 3 mg PO BEDTIME 05/04/20 [History] Metoprolol Tartrate 12.5 mg PO DAILY 05/04/20 [History] Multivitamin 1 each PO DAILY 05/04/20 [History] Sennosides/Docusate Sodium [Senna-Docusate Sodium Tablet] 2 each PO DAILY 05/04/20 [History] atorvaSTATin [Lipitor] 80 mg PO DAILY 05/04/20 [History] Past Medical History Cardiovascular History: Reports: High Cholesterol, Hypertension Genitourinary History: Reports: BPH, Other (See Below) Other Genitourinary History: Urinary retention. Musculoskeletal History: Reports: Gout - Past Surgical History Cardiovascular Surgical History: Reports: Percutaneous Transluminal Angioplasty GI Surgical History: Reports: Appendectomy, Hernia, Abdominal Social & Family History - Family History Family Medical History: No Pertinent Family History - Caffeine Use Caffeine Use: Reports: Soda - Living Situation & Occupation Occupation: Retired ED ROS GENERAL - Review of Systems Review Of Systems: Comprehensive ROS is negative, except as noted in HPI. ED EXAM, GENERAL - Physical Exam Exam: See Below Exam Limited By: No Limitations General Appearance: Alert, WD/WN, No Apparent Distress Nose: Normal Inspection Throat/Mouth: No Airway Compromise Head: Atraumatic, Normocephalic Neck: Full Range of Motion Respiratory/Chest: No Respiratory Distress, Lungs Clear, Normal Breath Sounds Cardiovascular: Regular Rate, Rhythm, No Edema, No Gallop, No Murmur GI/Abdominal: Soft, Non-Tender, No Distention Back Exam: Full Range of Motion Extremities: Normal Range of Motion, Non-Tender, No Pedal Edema Neurological: Alert, Oriented, No Motor/Sensory Deficits Psychiatric: Normal Affect, Normal Mood Skin Exam: Warm, Dry, Intact #1 Interpretation EKG Date: 05/04/20 Time: 08:46 Rhythm: NSR Rate (Beats/Min): 87 [place]: Normal P-Wave: Present QRS: Other (frequent pvc's and pac's) ST-T: Normal QT: Normal Course - Vital Signs Last Recorded V/S: Last Vital Signs Temp 35.7 C L 05/04/20 08:01 Pulse 58 L 05/04/20 08:40 Resp 18 05/04/20 08:40 BP 119/81 05/04/20 08:40 Pulse Ox 99 05/04/20 08:40 Orthostatic Blood Pressure [ 105/64 Standing] Orthostatic Blood Pressure [ 109/70 Sitting] Orthostatic Blood Pressure [ 112/78 Supine] - Orders/Labs/Meds Orders: Active Orders 24 hr Category Date Time Status EKG Documentation Completion [RC] ASDIRECTED Care 05/04/20 09:12 Active Magnesium Sulfate [Magnesium Sulfate 50%] 2 gm Med 05/04/20 10:36 Active Dextrose 5% in Water 100 ml IV ONETIME Magnesium Sulfate/Water [Magnesium Sulfate in Water 2 Med 05/04/20 11:00 Active GM/50 ML] 2 gm in 50 ml IV ONETIME Sodium Chloride 0.9% [Saline Flush] Med 05/04/20 09:13 Active 10 ml FLUSH ASDIRECTED PRN Saline Lock Insert [OM.PC] Routine Oth 05/04/20 09:13 Ordered EKG 12 Lead [EK] Stat Ther 05/04/20 09:12 Ordered Medication Orders Magnesium Sulfate 2 gm/ (Dextrose/Water) 104 mls @ 100 mls/hr IV ONETIME ONE Stop: 05/04/20 11:38 Last Admin: 05/04/20 10:58 Dose: Not Given Documented by: BRANDYN Magnesium Sulfate (Magnesium Sulfate In Water 2 Gm/50 Ml) 2 gm in 50 mls @ 50 mls/hr IV ONETIME SERA Last Admin: 05/04/20 10:45 Dose: 50 mls/hr Documented by: BRANDYN Sodium Chloride (Saline Flush) 10 ml FLUSH ASDIRECTED PRN PRN Reason: Keep Vein Open Last Admin: 05/04/20 09:30 Dose: 10 ml Documented by: BRANDYN Labs: Laboratory Tests 05/04/20 05/04/20 05/04/20 Range/Units 09:30 09:30 09:30 WBC 8.0 (3.2-10.1) x10-3/uL RBC 4.67 (3.90-5.90) x10(6)uL Hgb 13.4 (12.9-17.7) g/dL Hct 41.0 (38.3-50.1) % MCV 87.7 (80.8-98.7) fL MCH 28.7 (27.0-33.3) pg MCHC 32.7 (28.7-35.3) g/dL RDW 16.9 H (12.4-15.0) % Plt Count 112 L (117-477) x10(3)uL MPV 10.1 (6.7-11.0) fL Neut % (Auto) 65.0 (40.3-71.8) % Lymph % (Auto) 14.3 L (15.8-45.3) % Emanuel % (Auto) 16.0 H (5.5-15.2) % Eos % (Auto) 3.2 (0.1-6.8) % Baso % (Auto) 1.5 (0.3-3.8) % Neut # (Auto) 5.2 (1.7-6.9) x10-3/uL Lymph # (Auto) 1.1 (0.5-4.5) x10-3/uL Emanuel # (Auto) 1.3 H (0.0-1.2) x10-3/uL Eos # (Auto) 0.3 (0.0-0.6) x10-3/uL Baso # (Auto) 0.1 (0.0-0.3) x10-3/uL Sodium 140 (135-145) mmol/L Potassium 3.2 L (3.5-5.3) mmol/L Chloride 103 (100-110) mmol/L Carbon Dioxide 28 (21-32) mmol/L BUN 26 H (7-18) mg/dL Creatinine 1.4 H (0.70-1.30) mg/dL Est Cr Clr Drug Dosing 38.58 mL/min Estimated GFR (MDRD) 48 L (>60) BUN/Creatinine Ratio 18.6 (9-20) Glucose 94 (80-116) mg/dL Calcium 8.7 (8.6-10.2) mg/dL Magnesium (1.8-2.5) mg/dL Total Bilirubin 0.8 (0.1-1.3) mg/dL AST 31 H D (5-25) IU/L ALT 31 (12-36) U/L Alkaline Phosphatase 107 (56-112) IU/L Troponin I 40.9 (4.0-60.3) pg/mL Total Protein 6.9 (6.0-8.0) g/dL Albumin 3.4 (3.2-4.6) g/dL Globulin 3.5 g/dL Albumin/Globulin Ratio 1.0 Urine Color (YELLOW) Urine Appearance (CLEAR) Urine pH (5.0-6.5) Ur Specific [place] (1.010-1.025) Urine Protein (NEGATIVE) mg/dL Urine Glucose (UA) (NORMAL) mg/dL Urine Ketones (NEGATIVE) mg/dL Urine Occult Blood (NEGATIVE) Urine Nitrite (NEGATIVE) Urine Bilirubin (NEGATIVE) Urine Urobilinogen (NEGATIVE) mg/dL Ur Leukocyte Esterase (NEGATIVE) Urine RBC (0-5) Urine WBC (0-5) Ur Squamous Epith Cells (NS,R,O) 02/14/21 02/14/21 Range/Units 09:30 10:40 WBC (3.2-10.1) x10-3/uL RBC (3.90-5.90) x10(6)uL Hgb (12.9-17.7) g/dL Hct (38.3-50.1) % MCV (80.8-98.7) fL MCH (27.0-33.3) pg MCHC (28.7-35.3) g/dL RDW (12.4-15.0) % Plt Count (117-477) x10(3)uL MPV (6.7-11.0) fL Neut % (Auto) (40.3-71.8) % Lymph % (Auto) (15.8-45.3) % Emanuel % (Auto) (5.5-15.2) % Eos % (Auto) (0.1-6.8) % Baso % (Auto) (0.3-3.8) % Neut # (Auto) (1.7-6.9) x10-3/uL Lymph # (Auto) (0.5-4.5) x10-3/uL Emanuel # (Auto) (0.0-1.2) x10-3/uL Eos # (Auto) (0.0-0.6) x10-3/uL Baso # (Auto) (0.0-0.3) x10-3/uL Sodium (135-145) mmol/L Potassium (3.5-5.3) mmol/L Chloride (100-110) mmol/L Carbon Dioxide (21-32) mmol/L BUN (7-18) mg/dL Creatinine (0.70-1.30) mg/dL Est Cr Clr Drug Dosing mL/min Estimated GFR (MDRD) (>60) BUN/Creatinine Ratio (9-20) Glucose (80-116) mg/dL Calcium (8.6-10.2) mg/dL Magnesium 1.4 L (1.8-2.5) mg/dL Total Bilirubin (0.1-1.3) mg/dL AST (5-25) IU/L ALT (12-36) U/L Alkaline Phosphatase (56-112) IU/L Troponin I (4.0-60.3) pg/mL Total Protein (6.0-8.0) g/dL Albumin (3.2-4.6) g/dL Globulin g/dL Albumin/Globulin Ratio Urine Color Yellow (YELLOW) Urine Appearance Clear (CLEAR) Urine pH 5.0 (5.0-6.5) Ur Specific [place] 1.015 (1.010-1.025) Urine Protein Negative (NEGATIVE) mg/dL Urine Glucose (UA) Normal (NORMAL) mg/dL Urine Ketones Negative (NEGATIVE) mg/dL Urine Occult Blood Negative (NEGATIVE) Urine Nitrite Negative (NEGATIVE) Urine Bilirubin Negative (NEGATIVE) Urine Urobilinogen Normal (NEGATIVE) mg/dL Ur Leukocyte Esterase Negative (NEGATIVE) Urine RBC 0-5 (0-5) Urine WBC 0-5 (0-5) Ur Squamous Epith Cells Occasional (NS,R,O) Meds: Medications Generic Name Dose Route Start Last Admin Trade Name Lu PRN Reason Stop Dose Admin Magnesium Sulfate 2 gm/ 104 mls @ 100 mls/hr 05/04/20 10:36 05/04/20 10:58 Dextrose/Water IV 05/04/20 11:38 Not Given ONETIME ONE Magnesium Sulfate 2 gm in 50 mls @ 50 mls/hr 05/04/20 11:00 05/04/20 10:45 Magnesium Sulfate In Water 2 Gm/50 Ml IV 50 mls/hr ONETIME SERA Administration Sodium Chloride 10 ml 05/04/20 09:13 05/04/20 09:30 Saline Flush FLUSH 10 ml ASDIRECTED PRN Administration Keep Vein Open Discontinued Medications Generic Name Dose Route Start Last Admin Trade Name Freandres PRN Reason Stop Dose Admin Sodium Chloride 500 mls @ 500 mls/hr 05/04/20 09:13 05/04/20 09:30 Normal Saline IV 05/04/20 10:12 500 mls/hr .BOLUS ONE Administration Magnesium Sulfate Confirm 05/04/20 10:45 05/04/20 10:52 Magnesium Sulfate In Water 2 Gm/50 Ml Administered 05/04/20 10:46 Not Given Dose 2 gm in 50 mls @ as directed .ROUTE .STK-MED ONE Potassium Chloride 40 meq 05/04/20 10:17 05/04/20 10:23 Klor-Con M20 PO 05/04/20 10:18 40 meq ONETIME ONE Administration Departure - Departure Time of Disposition: 11:02 Disposition: Home, Self-Care 01 Condition: Good Clinical Impression: Hypomagnesemia Insomnia Qualifiers: Insomnia type: unspecified Qualified Code(s): G47.00 - Insomnia, unspecified - Discharge Information *PRESCRIPTION DRUG MONITORING PROGRAM REVIEWED*: No *COPY OF PRESCRIPTION DRUG MONITORING REPORT IN PATIENT KIANNA: Not Applicable Prescriptions: Magnesium Oxide 400 mg PO DAILY #30 tab Referrals: Lucia Whitney PA-C [Primary Care Provider] - 3 Days Forms: ED Department Discharge Additional Instructions: Fill the prescription for Magnesium Oxide at [facility] and take as directed. Increase Melatonin to 6 mg nightly. Follow up with your primary physician in 2-3 days. Return to the ER as needed. Sepsis Event Note (ED) - Evaluation Sepsis Screening Result: No Definite Risk - Focused Exam Vital Signs: Vital Signs Temp Pulse Resp BP Pulse Ox 05/04/20 08:40 58 L 18 119/81 99 05/04/20 08:01 35.7 C L 51 L 22 H 92/55 L 99 - My Orders Last 24 Hours: My Active Orders 05/04/20 09:12 EKG Documentation Completion [RC] ASDIRECTED EKG 12 Lead [EK] Stat 05/04/20 09:13 Sodium Chloride 0.9% [Saline Flush] 10 ml FLUSH ASDIRECTED PRN Saline Lock Insert [OM.PC] Routine 05/04/20 10:36 Magnesium Sulfate [Magnesium Sulfate 50%] 2 gm Dextrose 5% in Water 100 ml IV ONETIME 05/04/20 11:00 Magnesium Sulfate/Water [Magnesium Sulfate in Water 2 GM/50 ML] 2 gm in 50 ml IV ONETIME - Assessment/Plan Last 24 Hours: My Active Orders 05/04/20 09:12 EKG Documentation Completion [RC] ASDIRECTED EKG 12 Lead [EK] Stat 05/04/20 09:13 Sodium Chloride 0.9% [Saline Flush] 10 ml FLUSH ASDIRECTED PRN Saline Lock Insert [OM.PC] Routine 05/04/20 10:36 Magnesium Sulfate [Magnesium Sulfate 50%] 2 gm Dextrose 5% in Water 100 ml IV ONETIME 05/04/20 11:00 Magnesium Sulfate/Water [Magnesium Sulfate in Water 2 GM/50 ML] 2 gm in 50 ml IV ONETIME
[2020-05-04] MEDS: Sodium Chloride 0.9% 500 ML IV ONE ×2 (09:30→11:30)
[2020-05-04] MEDS ORDERED: Potassium Chloride 20 MEQ Tab.ER PO ONE (10:17)
[2020-05-04] MEDS ORDERED: Magnesium Sulfate/Water 2 GM/50 ML BAG ONE (10:45)
[2020-05-04] MEDS ORDERED: Magnesium Sulfate/Water 2 GM/50 ML BAG IV SCH (11:00)
== END 2020-05-04 13:30 | disposition home or self-care (01) ==
LOC: FB.ED 07:59
DX: G47.00 Insomnia, unspecified (principal); E83.42 Hypomagnesemia; E78.00 Pure hypercholesterolemia, unspecified; I10 Essential (primary) hypertension; N40.0 Benign prostatic hyperplasia without lower urinary tract symptoms; M10.9 Gout, unspecified; Z79.82 Long term (current) use of aspirin; Z79.899 Other long term (current) drug therapy
CPT/HCPCS: 36415; 80053; 81001; 83735; 84484; 85025; 93005; 96365; 99284-25; A9270-GY; J3475; J7040

== ENCOUNTER 2020-06-01 04:17 | Emergency (ER) | payer MEDICARE ==
--- NOTE | 2020-06-01 05:42 | EDM.PDOC ---
ED HPI GENERAL MEDICAL PROBLEM - General Chief Complaint: General Stated Complaint: MEDICATION REACTION Time Seen by Provider: 06/01/20 05:41 Source of Information: Reports: Patient History Limitations: Reports: No Limitations - History of Present Illness INITIAL COMMENTS - FREE TEXT/NARRATIVE: Harry came in with confusion,mental status changes after taking Doxepin prescribed by his PCP for insomnia. He took it around 9 pm. He felt out of body experience,weakness - Related Data Allergies Allergy/AdvReac Type Severity Reaction Status Date / Time No Known Allergies Allergy Verified 05/04/20 08:42 Home Meds: Home Meds Allopurinol [Zyloprim] 100 mg PO DAILY 03/04/20 [History] Aspirin [Ecotrin EC] 81 mg PO DAILY 03/04/20 [History] Finasteride 5 mg PO DAILY 03/04/20 [History] Terazosin HCl [Terazosin] 5 mg PO DAILY 03/04/20 [History] Acetaminophen [Tylenol] 325 mg PO Q4H PRN 05/04/20 [History] Cholecalciferol (Vitamin D3) [Vitamin D3] 1,000 unit PO DAILY 05/04/20 [History] Magnesium Oxide 400 mg PO DAILY #30 tab 05/04/20 [Rx] Melatonin 3 mg PO BEDTIME 05/04/20 [History] Metoprolol Tartrate 12.5 mg PO DAILY 05/04/20 [History] Multivitamin 1 each PO DAILY 05/04/20 [History] Sennosides/Docusate Sodium [Senna-Docusate Sodium Tablet] 2 each PO DAILY 05/04/20 [History] atorvaSTATin [Lipitor] 80 mg PO DAILY 05/04/20 [History] Potassium Chloride [Klor-Con M20] 20 meq PO BID #30 tab.er 06/01/20 [Rx] Past Medical History Cardiovascular History: Reports: High Cholesterol, Hypertension, OR Genitourinary History: Reports: BPH, Other (See Below) Other Genitourinary History: Urinary retention. Musculoskeletal History: Reports: Gout Neurological History: Reports: Other (See Below) Other Neuro History: ENCEPHALOPATHY,COGNITIVE COMMUNICATIO DEFICIT (THESE DX TAKEN FROM [place] REFERREL) Hematologic History: Reports: Other (See Below) Other Hematologic History: THROMBOCYTOPENIA - Past Surgical History Cardiovascular Surgical History: Reports: Percutaneous Transluminal Angioplasty GI Surgical History: Reports: Appendectomy, Hernia, Abdominal Social & Family History - Family History Family Medical History: No Pertinent Family History - Caffeine Use Caffeine Use: Reports: Soda - Living Situation & Occupation Occupation: Retired ED ROS GENERAL - Review of Systems Review Of Systems: Comprehensive ROS is negative, except as noted in HPI. ED EXAM, GENERAL - Physical Exam Exam: See Below Exam Limited By: No Limitations General Appearance: Alert, WD/WN Nose: Normal Inspection Throat/Mouth: Normal Inspection Head: Atraumatic Neck: Normal Inspection Respiratory/Chest: No Respiratory Distress #1 Interpretation EKG Date: 06/01/20 Rhythm: NSR [place]: Normal Course - Orders/Labs/Meds Orders: Active Orders 24 hr Category Date Time Status EKG Documentation Completion [RC] ASDIRECTED Care 06/01/20 04:19 Active EKG 12 Lead [EK] Routine Ther 06/01/20 04:19 Ordered Labs: Laboratory Tests 06/01/20 06/01/20 06/01/20 Range/Units 04:45 04:45 04:45 WBC 8.6 (3.2-10.1) x10-3/uL RBC 4.58 (3.90-5.90) x10(6)uL Hgb 13.5 (12.9-17.7) g/dL Hct 41.1 (38.3-50.1) % MCV 89.7 (80.8-98.7) fL MCH 29.4 (27.0-33.3) pg MCHC 32.7 (28.7-35.3) g/dL RDW 16.1 H (12.4-15.0) % Plt Count 122 (117-477) x10(3)uL MPV 10.5 (6.7-11.0) fL Neut % (Auto) 59.9 (40.3-71.8) % Lymph % (Auto) 16.1 (15.8-45.3) % [place] % (Auto) 17.3 H (5.5-15.2) % Eos % (Auto) 5.6 (0.1-6.8) % Baso % (Auto) 1.1 (0.3-3.8) % Neut # (Auto) 5.2 (1.7-6.9) x10-3/uL Lymph # (Auto) 1.4 (0.5-4.5) x10-3/uL [place] # (Auto) 1.5 H (0.0-1.2) x10-3/uL Eos # (Auto) 0.5 (0.0-0.6) x10-3/uL Baso # (Auto) 0.1 (0.0-0.3) x10-3/uL Sodium 142 (135-145) mmol/L Potassium 2.8 L* (3.5-5.3) mmol/L Chloride 104 (100-110) mmol/L Carbon Dioxide 26 (21-32) mmol/L BUN 21 H (7-18) mg/dL Creatinine 1.3 (0.70-1.30) mg/dL Est Cr Clr Drug Dosing TNP Estimated GFR (MDRD) 52 L (>60) BUN/Creatinine Ratio 16.2 (9-20) Glucose 114 (80-116) mg/dL Calcium 8.2 L (8.6-10.2) mg/dL Total Bilirubin 0.9 (0.1-1.3) mg/dL AST 61 H D (5-25) IU/L ALT 86 H D (12-36) U/L Alkaline Phosphatase 106 (56-112) IU/L Troponin I 41.8 (4.0-60.3) pg/mL Total Protein 6.2 (6.0-8.0) g/dL Albumin 3.2 (3.2-4.6) g/dL Globulin 3.0 g/dL Albumin/Globulin Ratio 1.1 Departure - Departure Time of Disposition: 05:41 Disposition: Home, Self-Care 01 Condition: Good Clinical Impression: Hypokalemia - Discharge Information Prescriptions: Potassium Chloride [Klor-Con M20] 20 meq PO BID #30 tab.er Referrals: PCP,None [Primary Care Provider] - Forms: ED Department Discharge - Problem List & Annotations (1) Confusion caused by a drug SNOMED Code(s): 869214705 Code(s): R41.0 - DISORIENTATION, UNSPECIFIED; T50.905A - ADVERSE EFFECT OF UNSP DRUG/MEDS/BIOL SUBST, INIT Status: Acute Current Visit: Yes (2) Confusion SNOMED Code(s): 258254691 Code(s): R41.0 - DISORIENTATION, UNSPECIFIED Status: Acute Current Visit: No - Problem List Review Problem List Initiated/Reviewed/Updated: Yes - My Orders Last 24 Hours: My Active Orders 06/01/20 04:19 EKG Documentation Completion [RC] ASDIRECTED EKG 12 Lead [EK] Routine - Assessment/Plan Last 24 Hours: My Active Orders 06/01/20 04:19 EKG Documentation Completion [RC] ASDIRECTED EKG 12 Lead [EK] Routine Plan: DC home. He felt better after 1 hour. Will replace Potassium.
== END 2020-06-01 06:30 | disposition home or self-care (01) ==
LOC: FB.ED 04:17
DX: E87.6 Hypokalemia (principal); E78.00 Pure hypercholesterolemia, unspecified; I10 Essential (primary) hypertension; I25.2 Old myocardial infarction; N40.0 Benign prostatic hyperplasia without lower urinary tract symptoms; M10.9 Gout, unspecified; Z79.899 Other long term (current) drug therapy; Z79.82 Long term (current) use of aspirin
CPT/HCPCS: 36415; 80053; 84484; 85025; 93005; 99285-25